=== PATIENT | female | born 1940 | race Caucasian/White ===

== ENCOUNTER 2018-01-11 07:53 | Outpatient (RCR) | payer MEDICARE, OTHER ==
[~2018-01-11 07:53] MED LIST: CALCIUM600 M1; PLENDIL5 MG PO; Z.0.METOPROLOL SUCC2 PO; Z.0.SIMVASTATIN20 MG PO; Z.2.METFORMIN HCL500 PO; Z.3.CENTRUM SILVER1
== END 2018-01-19 ==
LOC: PT 07:53
PROVIDERS: ATTEND Specialist
DX: M70.62 Trochanteric bursitis, left hip (principal); M54.5 Low back pain; M62.81 Muscle weakness (generalized)
CPT/HCPCS: 97110 ×9; 97139; 97140; 97162; G8981; G8982 ×2; G8983

== ENCOUNTER → 2018-05-20 | Outpatient (CLI) | payer MEDICARE, OTHER ==
[~2018-05-20] MED LIST changes: +REGADENOSON 0.4 MG/5 ML SYR IV ONE
== END ==
LOC: NM 09:59
PROVIDERS: ATTEND Internal Medicine Cardiovascular Disease
DX: R94.31 Abnormal electrocardiogram [ECG] [EKG] (principal)
CPT/HCPCS: 78452; A9502; J2785; 93017

== ENCOUNTER 2024-11-15 09:52 | Emergency (ER) | payer MEDICARE, OTHER ==
[~2024-11-15] VITALS: Ht 175.3 cm; Wt 59.9 kg
[~2024-11-15 09:52] MED LIST changes: -REGADENOSON 0.4 MG/5 ML SYR IV ONE
[2024-11-15 11:22] VITALS: PULSE 68; RESP 16; TEMP 98.7; O2SAT 98
[2024-11-15] MEDS ORDERED: ULTRAM 50MG50 MG PO (11:22)
[2024-11-15] MEDS: IBUPROFEN 600 MG TAB PO STA (11:47)
[2024-11-15] MEDS: TRAMADOL HCL 50 MG TAB PO ONE (11:47)
== END 2024-11-15 11:50 | disposition home or self-care (01) ==
LOC: ER 09:59
DX: S42.291A Other displaced fracture of upper end of right humerus, initial encounter for closed fracture (principal); W01.198A Fall on same level from slipping, tripping and stumbling with subsequent striking against other object, initial encounter; Y93.01 Activity, walking, marching and hiking; Y92.89 Other specified places as the place of occurrence of the external cause
CPT/HCPCS: 99283